=== PATIENT | female | born 1945 | race Caucasian/White ===

== ENCOUNTER 2019-02-24 06:21 | Day surgery (SDC) | payer MEDICARE, OTHER ==
[2019-02-24] MEDS ORDERED: Propofol 200 MG/20 ML SDV IV ONE (06:22)
[2019-02-24] MEDS ORDERED: Glycopyrrolate 0.2 MG/ML 5 ML MDV IV ONE (06:22)
[2019-02-24] MEDS ORDERED: Lactated Ringers 1,000 ML IV SCH (06:45)
--- NOTE | 2019-02-24 08:29 | PCM.OPNOTE ---
- General Post-Op/Procedure Note Date of Surgery/Procedure: 02/24/19 Operative Procedure(s): c scope with bx Findings: sigmoid colon polyp Pre Op Diagnosis: screening Post-Op Diagnosis: sigmoid colon polyp Anesthesia Technique: MAC Primary Surgeon: Channing Cordoba Anesthesia Provider: Sanju Murray Pathology: sigmoid colon polyp Complications: None Condition: Good Free Text/Narrative:: see dictation
--- NOTE | 2019-02-24 08:56 | OR ---
DATE OF OPERATION: 02/24/2019 SURGEON: Channing Cordoba MD PROCEDURE PERFORMED: Colonoscopy with cold forceps biopsy. PREOPERATIVE DIAGNOSIS: Need for screening C-scope. POSTOPERATIVE DIAGNOSIS: Polyp of the sigmoid colon. INDICATIONS FOR PROCEDURE: This 73-year-old white female presents for routine screening colonoscopy, was offered and accepted same. DESCRIPTION OF OPERATION: After an excellent IV sedation was administered, digital rectal exam was performed. No marked abnormality was noted. Flexible colonoscope was inserted and advanced to the cecum. Prep was excellent. The following findings were noted. Ascending colon, unremarkable. Transverse colon, unremarkable. Descending colon, unremarkable. Sigmoid, small polypoid lesion, biopsied with cold biopsy forceps, sent for permanent. Rectum and anus, unremarkable. The patient tolerated the procedure well. Results by letter. /[id number] /MODL
== END 2019-02-24 09:16 | disposition home or self-care (01) ==
LOC: FB.SDS 06:21
PROVIDERS: ATTEND Surgery
DX: Z12.11 Encounter for screening for malignant neoplasm of colon (principal); D12.5 Benign neoplasm of sigmoid colon; K21.9 Gastro-esophageal reflux disease without esophagitis; F41.9 Anxiety disorder, unspecified; F32.9 Major depressive disorder, single episode, unspecified; M79.7 Fibromyalgia; Z88.1 Allergy status to other antibiotic agents; Z88.5 Allergy status to narcotic agent; Z91.030 Bee allergy status; Z91.038 Other insect allergy status; Z91.048 Other nonmedicinal substance allergy status; Z79.82 Long term (current) use of aspirin; Z79.899 Other long term (current) drug therapy
CPT/HCPCS: 00812-QZ; 88305; J2001; J2704; J3490; J7120

== ENCOUNTER 2023-01-01 12:03 | Emergency (ER) | payer MEDICARE, OTHER ==
[2023-01-01 12:40] LABS: ESTIMATED GFR 57 mL/min (>60)
== END 2023-01-01 13:25 | disposition home or self-care (01) ==
LOC: FB.ED 12:03
DX: R07.9 Chest pain, unspecified (principal); M79.7 Fibromyalgia; Z88.5 Allergy status to narcotic agent; Z88.1 Allergy status to other antibiotic agents; Z91.048 Other nonmedicinal substance allergy status; Z91.038 Other insect allergy status; Z79.82 Long term (current) use of aspirin; Z79.899 Other long term (current) drug therapy
CPT/HCPCS: 36415; 71045; 80053; 83880; 84484; 85025; 85610; 85730; 93005; 93010; 99283; 99285

== ENCOUNTER 2024-09-24 06:41 | Day surgery (SDC) | payer MEDICARE, OTHER ==
[2024-09-24] MEDS ORDERED: Lidocaine 2% 100 MG/5 ML Syringe IVPUSH ONE (06:42)
[2024-09-24] MEDS ORDERED: Propofol 200 MG/20 ML SDV IV ONE (06:42)
[2024-09-24] MEDS ORDERED: Sodium Chloride 0.9% 10 ML Syringe FLUSH PRN (07:00)
[2024-09-24] MEDS: Lactated Ringers 1,000 ML IV SCH (07:42)
[2024-09-24] MEDS: Simethicone Drops 40 MG/0.6 ML 30 ML Bottle ONE (08:21)
== END 2024-09-24 09:50 | disposition home or self-care (01) ==
LOC: FB.SDS 06:41
PROVIDERS: ATTEND Surgery
DX: Z12.11 Encounter for screening for malignant neoplasm of colon (principal); D12.0 Benign neoplasm of cecum; D12.6 Benign neoplasm of colon, unspecified; K57.30 Diverticulosis of large intestine without perforation or abscess without bleeding; E78.2 Mixed hyperlipidemia; F32.A Depression, unspecified; Z86.0101 Personal history of adenomatous and serrated colon polyps; Z79.899 Other long term (current) drug therapy; Z88.5 Allergy status to narcotic agent; Z91.038 Other insect allergy status; Z88.1 Allergy status to other antibiotic agents
CPT/HCPCS: 00811; 45384; 45385; 88305; 99100; A9270; J2704; J7120